=== PATIENT | female | born 1945 | race Asian ===

== ENCOUNTER 2020-12-10 09:53 | Outpatient (CLI) | payer MEDICARE ==
[2020-12-10 11:09] LABS: Estimated GFR-MDRD - POC Greater than 90
== END 2020-12-10 09:54 | disposition home or self-care (01) ==
LOC: CSHCT 09:53
PROVIDERS: ATTEND Nurse Practitioner Family
DX: K57.92 Diverticulitis of intestine, part unspecified, without perforation or abscess without bleeding (principal); R19.09 Other intra-abdominal and pelvic swelling, mass and lump; K76.9 Liver disease, unspecified; N28.1 Cyst of kidney, acquired
CPT/HCPCS: 74177; 82565

== ENCOUNTER 2024-03-16 07:43 | Outpatient (CLI) | payer MEDICARE | END 2024-03-16 07:44 | disposition home or self-care (01) | LOC: CSHULT 07:43 | PROVIDERS: ATTEND Nurse Practitioner Family | DX: R10.9 Unspecified abdominal pain (principal); K80.20 Calculus of gallbladder without cholecystitis without obstruction; N28.1 Cyst of kidney, acquired; K76.89 Other specified diseases of liver | CPT/HCPCS: 76700 ==

== ENCOUNTER 2024-07-05 09:38 | Outpatient (CLI) | payer MEDICARE | END 2024-07-05 09:39 | disposition home or self-care (01) | LOC: CSHMAMMO 09:38 | PROVIDERS: ATTEND Nurse Practitioner Family | DX: Z78.0 Asymptomatic menopausal state (principal); M81.0 Age-related osteoporosis without current pathological fracture | CPT/HCPCS: 77080 ==